=== PATIENT | female | born 1945 | race Hispanic/Latino ===

== ENCOUNTER 2017-05-29 08:26 | Outpatient (CLI) | payer MEDICARE ==
[2017-05-29 09:29] LABS: Blood Urea Nitrogen 18 mg/dL (7-17)
--- NOTE | 2017-05-29 13:11 | Cat Scan Report ---
FINAL REPORT PROCEDURE: CT ABDOMEN PELVIS WO/W CON TECHNIQUE: Consent was obtained. Oral contrast was given and axial sections viewed through the abdomen and pelvis. IV contrast was given and sections reperformed. Delayed axial sections and postcontrast coronal and sagittal reformatted images were also submitted for review. 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 Mild bibasilar subsegmental atelectasis is present. There is no fibrosis at the lung bases suspected. There is no abdominal aortic aneurysm or dissection. Cholecystectomy is noted. There is central intrahepatic as well as extrahepatic biliary ductal dilatation, the extrahepatic bile duct maximally 1.5 centimeters in diameter. There is no focal lesion seen of the liver, spleen, pancreas, adrenal glands, or kidneys. There is no ascites or lymphadenopathy. Colonic constipation without bowel obstruction is seen. There is calcific atherosclerosis most conspicuously of the proximal most right worse than left main renal arteries. There is no abdominal aortic aneurysm. The appendix is not definitely seen. There is no inflammatory mass to suggest appendicitis. There is no suggested sacroiliitis. IMPRESSION: Diffuse osteopenia. 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 Peripheral stenosis at L3/L4 through L5/S1 as well as central canal stenosis at L4/L5. Atherosclerosis worst of the ostial right worse than left renal arteries. Consider follow-up with CTA as well as evaluate for normal renal function. Renal cortical volume appears normal. Colonic constipation Central intra as well as extrahepatic biliary ductal dilatation likely due to post cholecystectomy. Correlate with liver enzymes.
== END 2017-05-29 08:27 | disposition home or self-care (01) ==
LOC: CT 08:26
PROVIDERS: ATTEND Radiology Diagnostic Radiology
DX: I73.00 Raynaud's syndrome without gangrene (principal); K55.039 Acute (reversible) ischemia of large intestine, extent unspecified; M48.061 Spinal stenosis, lumbar region without neurogenic claudication; J98.11 Atelectasis; K59.00 Constipation, unspecified; M85.88 Other specified disorders of bone density and structure, other site; M47.896 Other spondylosis, lumbar region; I70.1 Atherosclerosis of renal artery; Z90.49 Acquired absence of other specified parts of digestive tract
CPT/HCPCS: 36415; 74178; 82565; 84520; Q9967